=== PATIENT | male | born 1960 | race African-American/Black ===

== ENCOUNTER 2018-09-03 06:35 | Day surgery (SDC) | payer OTHER ==
[~2018-09-03] VITALS: Ht 190.5 cm; Wt 122.5 kg
[2018-09-03] MEDS ORDERED: BUPIVAC MPF-EPI 0.5%-1:200000 30 ML VIAL. ONE (06:51)
[2018-09-03] MEDS ORDERED: LIDOCAINE 1% PF 2 ML VIAL. ID PRN (07:00)
[2018-09-03] MEDS ORDERED: MORPHINE SULFATE 2 MG/ML VIAL. IV PRN (07:00)
[2018-09-03] MEDS ORDERED: HYDROmorphone 2 MG/ML VIAL IV PRN (07:00)
[2018-09-03] MEDS ORDERED: PROCHLORPERAZINE 10 MG/2 ML VIAL. IV PRN (07:00)
[2018-09-03] MEDS ORDERED: ONDANSETRON PF 4 MG/2 ML VIAL. IV PRN (07:00)
[2018-09-03] MEDS ORDERED: IV RINGERS,LACTATED 1000ML 1,000 ML IV SCH (07:00)
[2018-09-03] MEDS ORDERED: fentaNYL PF VIAL 100 MCG/2 ML VIAL IV PRN (07:00)
[2018-09-03] MEDS ORDERED: ROCURONIUM 50 MG/5 ML VIAL. ONE (07:25)
[2018-09-03] MEDS ORDERED: DEXAMETHASONE SOD PHOS 20 MG/5 ML VIAL. ONE (07:25)
[2018-09-03] MEDS ORDERED: LIDOCAINE 2% PF Vial for OR 5 ML VIAL. ONE (07:25)
[2018-09-03] MEDS ORDERED: PROPOFOL 20 ML IV ONE (07:25)
[2018-09-03] MEDS ORDERED: fentaNYL PF VIAL 100 MCG/2 ML VIAL ONE ×2 (07:25→08:35)
[2018-09-03] MEDS ORDERED: ONDANSETRON PF 4 MG/2 ML VIAL. ONE (07:26)
[2018-09-03] MEDS ORDERED: CYCL5TAB PO (07:29)
[2018-09-03] MEDS ORDERED: AMLO1TAB12 PO (07:29)
[2018-09-03] MEDS ORDERED: OMEP40CA5 PO (07:29)
[2018-09-03] MEDS ORDERED: ACET-704 PO (07:29)
[2018-09-03] MEDS ORDERED: ceFAZolin 2GM PREMIX 2 GM/50 ML BAG IV ONE (08:00)
[2018-09-03] MEDS ORDERED: ePHEDrine PF IN SALINE 50 MG/5 ML DISP.SYRIN IV ONE (08:21)
[2018-09-03] MEDS ORDERED: SUGAMMADEX SODIUM 200 MG/2 ML VIAL. IVP ONE (08:30)
[2018-09-03] MEDS ORDERED: PROCHLORPERAZINE 10 MG/2 ML VIAL. ONE (08:35)
--- NOTE | 2018-09-03 08:35 | PDOC4 ---
Operative Note Operative Note Date: 09/03/2018 Preoperative diagnosis: Incarcerated umbilical hernia Postoperative diagnosis: Same Procedure: Umbilical hernia repair Surgeon: Doug Specimen: None Dictation: Patient is a 58-year-old male complained of a painful bulge at his umbilicus. Procedure of umbilical hernia repair was explained to the patient in detail benefits were also discussed including bleeding and infection alternatives to this procedure also discussed with the patient, the patient seemed understanding able verbal and written consent to have the procedure performed. Patient was taken to the operating room placed in supine position general anesthesia was initiated once patient was asleep and intubated his abdomen was prepped and draped in usual sterile fashion using ChloraPrep. An area around the umbilicus was injected with half percent Marcaine with epinephrine and incision was made at the superior border of the umbilicus with a 15 blade scalpel this is carried down through the subcutaneous tissue using electrocautery to provide hemostasis. The incarcerated omentum was reduced the hernia defect and the hernia defect was then closed with 0 Ethibond suture and a far near near far fashion. Wound was then closed in 2 layers deep layer running 3-0 Vicryl and skin was reapproximated for subcuticular Monocryl Mastisol Steri-Strips and island dressing were applied. The patient was awakened and extubated in the operating room taken to recovery in stable condition all sponge instrument needle counts listed as correct estimated blood loss 5 mL. ELVIRA MACEDO MD Sep 03, 2018 08:35
--- NOTE | 2018-09-03 08:36 | DISCH ---
DISCHARGE INSTRUCTIONS Condition on Discharge Condition on Discharge: Stable Activity After Discharge Activity Instructions for Disc: Avoid exertion Other activity instructions: no lifting more than 20 pounds for 2 weeks Diet after Discharge Diet after Discharge: Regular Wound Incision Care Other wound/incision instructi: May shower in 24 hours Contacting the [facility] after DC Call your doctor for: If your condition worsens Follow-Up Follow up with: Dr. Macedo in 2 weeks ELVIRA MACEDO MD Sep 03, 2018 08:36
[2018-09-03] MEDS ORDERED: SEVOFLURANE 61 TO 120 MINUTES. IH ONE (08:43)
[2018-09-03] MEDS ORDERED: OXYC1TAB15 PO (08:54)
[2018-09-03] MEDS: fentaNYL PF VIAL 100 MCG/2 ML VIAL IV PRN ×2 (09:07→09:18)
[2018-09-03] MEDS ORDERED: oxyCODONE/APAP 5/325 1 TAB TABLET PO ONE (09:30)
[2018-09-03 10:15] VITALS: BP 175/85
== END 2018-09-03 10:24 | disposition home or self-care (01) ==
LOC: SURG 06:35
PROVIDERS: ATTEND Surgery
DX: K42.0 Umbilical hernia with obstruction, without gangrene (principal); K21.9 Gastro-esophageal reflux disease without esophagitis; I10 Essential (primary) hypertension; D72.819 Decreased white blood cell count, unspecified; Z86.11 Personal history of tuberculosis; Z79.899 Other long term (current) drug therapy; Z85.89 Personal history of malignant neoplasm of other organs and systems; Z98.890 Other specified postprocedural states
CPT/HCPCS: 49587; A7015; J1100; J2001; J2405; J2704; J3010; J3490; J7120; J0690; J0780